=== PATIENT | male | born 1935 | race Caucasian/White ===

== ENCOUNTER → 2016-10-15 | Outpatient (REF) | payer MEDICARE | LOC: M SMT 16:58 | PROVIDERS: ATTEND Specialist | DX: R31.29 Other microscopic hematuria (principal) | CPT/HCPCS: 81001; 81002; 87086; G0463 ==

== ENCOUNTER 2018-06-26 10:34 | Day surgery (SDC) | payer MEDICARE ==
[~2018-06-26 10:34] MED LIST: LIDOCAINE 2% INJ 100 MG/5 ML SDV (FOR ANES.) As Ordered; PROPOFOL 200 MG/20 ML VIAL As Ordered
[2018-06-26] MEDS: NS 1,000 ML IV (10:45)
== END 2018-06-26 12:56 | disposition home or self-care (01) ==
LOC: M OPP 10:34
DX: R10.13 Epigastric pain (principal); K29.70 Gastritis, unspecified, without bleeding; I10 Essential (primary) hypertension; E78.5 Hyperlipidemia, unspecified; K21.9 Gastro-esophageal reflux disease without esophagitis; R12 Heartburn; M19.90 Unspecified osteoarthritis, unspecified site; F32.9 Major depressive disorder, single episode, unspecified; N40.1 Benign prostatic hyperplasia with lower urinary tract symptoms; Z87.891 Personal history of nicotine dependence; Z79.899 Other long term (current) drug therapy; Z80.1 Family history of malignant neoplasm of trachea, bronchus and lung
CPT/HCPCS: 43239

== ENCOUNTER → 2019-11-28 | Outpatient (REF) | payer MEDICARE ==
[~2019-11-28] MED LIST changes: +BENA40TA5 PO; +CHLO125TA PO; -LIDOCAINE 2% INJ 100 MG/5 ML SDV (FOR ANES.) As Ordered; +PRAV40TA2 PO; +PRIL20TA2 PO; +PROP60CA PO; -PROPOFOL 200 MG/20 ML VIAL As Ordered
== END ==
LOC: M LAB REF 09:48
PROVIDERS: ATTEND Dermatology
DX: D22.5 Melanocytic nevi of trunk (principal); D23.4 Other benign neoplasm of skin of scalp and neck

== ENCOUNTER 2020-08-31 05:30 | Observation (INO) | payer MEDICARE ==
[~2020-08-31] VITALS: Ht 177.8 cm; Wt 105.4 kg
[2020-08-31] VITALS (12 sets, daily range): BP systolic 132–174; BP diastolic 64–85
[2020-08-31] MEDS ORDERED: FAMOTIDINE INJ 20MG/2ML VIAL (S0028 PER 1) IVP ONE (05:45)
[2020-08-31] MEDS ORDERED: diphenhydrAMINE 50MG/ML VIAL (J1200) IV ONE (05:45)
[2020-08-31] MEDS ORDERED: dexameTHASONE 20MG/5ML VIAL (J1100 PER 1MG) IV ONE (05:45)
[2020-08-31] MEDS ORDERED: FAMO40TA3 PO (07:06)
[2020-08-31] MEDS ORDERED: CHLO25TA PO (07:14)
[2020-08-31] MEDS ORDERED: NYST10CR TOP (07:29)
[2020-08-31] MEDS ORDERED: OXYMETAZOLINE 0.05% NASAL SPRAY (AFRIN) ONE (07:45)
[2020-08-31] MEDS ORDERED: FAMOTIDINE 20 MG TAB PO PRN (08:30)
[2020-08-31] MEDS ORDERED: ACETAMINOPHEN TAB 650MG DOSE (2X325MG) PO PRN (08:30)
[2020-08-31] MEDS ORDERED: NYSTATIN CREAM 15 GM TOP PRN (08:30)
[2020-08-31] MEDS ORDERED: hydrALAZINE 20MG/ML 1ML VIAL (J0360 PER 20MG) IV PRN (08:45)
--- NOTE | 2020-08-31 08:51 | HPEPDOC ---
General Date of Admission 08/31/20 Date of Service: Aug 31, 2020 Chief Complaint The patient is a 85-year-old male admitted with a reason for visit of Lip/Mouth Swelling. Source: Patient, EMS notes reviewed Exam Limitations: Mild cognitive slowing Timing/Duration: 4-6 hours Severity: Moderate History of Present Illness Patient is 85 years old male with past medical history of hypertension, hyperlipidemia presented to the hospital with with swelling lips and difficulties in swallowing. Patient was transferred from [facility]. Patient stated that around 8 hours ago he started having swelling of his lips and his tongue became enlarged. Patient extremely poor historian Of note patient had 3 episodes of this swelling for past 8 years. Patient chronically on Jose inhibitor for hypertension. In ER patient was found to have swelling enlarged lips with enlarged tongue. Dr. Bueno did laryngoscopy and he did not find swelling, vocal cords or pharynx. Patient received antihistamines, steroids and FFP. Also patient was found to have C4 level within normal limit Home Medications Scheduled Benazepril HCl (Benazepril HCl) 40 Mg Tab, 40 MG PO DAILY, (Reported) Chlorthalidone (Chlorthalidone) 25 Mg Tablet, 25 MG PO DAILY, (Reported) Pravastatin Sodium (Pravastatin Sodium) 40 Mg Tab, 40 MG PO QHS, (Reported) Propranolol HCl (Propranolol HCl ER) 60 Mg Cap, 60 MG PO DAILY, (Reported) Scheduled PRN Famotidine (Famotidine) 40 Mg Tablet, 40 MG PO DAILY PRN for HEARTBURN, (Reported) Nystatin (Nystatin) 15 Gm Cream..g., 1 APPLIC TOP DAILY PRN for RASH, (Reported) APPLY TO GROIN NEEDED FOR FLARE UPS Allergies Coded Allergies: aspirin (Verified Adverse Reaction, Mild, UPSET STOMACH, 08/31/20) Past Medical History Medical History Hypertension, hyperlipidemia Family History I personally reviewed family history and found not pertinent Social History * Smoker: former Smoker Alcohol: Denies Drugs: denies A-FIB/CHADSVASC A-FIB History Current/History of A-Fib/PAF?: No Current PO Anticoag Therapy: No Review of Systems Constitutional: Denies: Chills Eyes: Denies: Pain ENT: Reports: Other Symptoms (swollen lips and tongue) Skin: Denies: Rash Pulmonary: Denies: Dyspnea, Cough Cardiovascular: Denies: Chest Pain Gastrointestinal: Denies: Nausea, Vomiting Genitourinary: Denies: Dysuria Hematologic: Denies: Bruising Endocrine: Denies: Polydipsia Musculoskeletal: Denies: Neck Pain Neurological: Denies: Weakness Psych: Reports: Mood Normal Physical Examination General Exam: Positive: Alert, Cooperative Eye Exam: Positive: PERRLA ENT Exam: Positive: Atraumatic, Tongue Midline (mildly enlarged), Other ENT (swollen lips) Neck Exam: Positive: Supple; Negative: JVD Chest Exam: Positive: Clear to auscultation Heart Exam: Positive: Rate Normal Telemetry: Positive: No significant arrhythmia Abdomen Exam: Positive: Normal bowel sounds Extremity Exam: Negative: Clubbing Skin Exam: Negative: Rash Neuro Exam: Positive: Strength at 5/5 X4 ext Psych Exam: Positive: Mental status NL Vital Signs Vital Signs Date Time Temp Pulse Resp B/P (MAP) Pulse Ox O2 Delivery O2 Flow Rate FiO2 08/31/20 08:15 98.5 73 20 170/84 97 Room Air Laboratory Data Labs 24H Laboratory Tests 2 08/31/20 06:14: Complement C4 24 08/31/20 07:11: Coronavirus (COVID-19)(PCR) NEGATIVE, Influenza Type A (RT-PCR) NEGATIVE, Influenza Type B (RT-PCR) NEGATIVE, Respiratory Syncytial Virus (PCR) NEGATIVE Assessment/Plan Patient is 85 years old male with past medical history of hypertension, hyperlipidemia presented to the hospital with with swelling lips and difficulties in swallowing. Patient was transferred from [facility]. Patient stated that around 8 hours ago he started having swelling of his lips and his tongue became enlarged. Patient extremely poor historian Of note patient had 3 episodes of this swelling for past 8 years. Patient chronically on Jose inhibitor for hypertension. In ER patient was found to have swelling enlarged lips with enlarged tongue. Dr. Bueno did laryngoscopy and he did not find swelling, vocal cords or pharynx. Patient received antihistamines, steroids and FFP. Also patient was found to have C4 level within normal limit Problems (1) Angioedema Status: Acute Problem Text: C4 within normal limit Most likely patient developed angioedema secondary to JOSE inhibitor Patient received steroids, antihistamines and fresh frozen plasma. We continued to observe patient for next 24 hours Laryngoscopy negative for vocal cord swelling (2) Hypertension Problem Text: Hydrolyzing with parameters Norvasc (3) Hyperlipidemia Problem Text: Continue statin Plan / VTE VTE Prophylaxis Ordered?: Yes DENISA AGUILAR DO Aug 31, 2020 08:51
[2020-08-31] MEDS ORDERED: amLODIPine 10 MG TAB PO ONE (09:00)
[2020-08-31] MEDS ORDERED: SLF 3 ML SYR IV PRN (10:00)
[2020-08-31] MEDS: PROPRANOLOL 60 MG LA CAP PO SCH (10:50)
[2020-08-31] MEDS: CHLORTHALIDONE 25 MG TAB PO SCH (10:50)
[2020-08-31] MEDS: ENOXAPARIN 40MG/0.4ML SYRINGE (J1650 PER 10MG) SC SCH ×2 (10:51→10:57)
[2020-08-31] MEDS: SLF 3 ML SYR IV SCH ×2 (14:00→21:21)
[2020-08-31] MEDS ORDERED: PRAVASTATIN 20 MG TAB PO SCH (21:00)
[2020-09-01] VITALS: BP 136/61
[2020-09-01 04:00] VITALS: BP 121/56
[2020-09-01 05:01] LABS: HEMOGLOBIN 11.8 g/dl (13.5-17.5); MEAN CORPUSCULAR HEMOGLOBIN 29.9 pg (27.0-33.0); MEAN CORPUSCULAR HGB CONC 33.7 g/dl (32.0-36.5); MEAN CORPUSCULAR VOLUME 88.8 fl (80.0-96.0); PLATELET COUNT, AUTOMATED 181 10^3/uL (150-450); RED BLOOD COUNT 3.94 10^6/uL (4.30-6.10); WHITE BLOOD COUNT 8.3 10^3/uL (4.0-10.0)
[2020-09-01] MEDS: SLF 3 ML SYR IV SCH (05:18)
[2020-09-01 05:19] LABS: BLOOD UREA NITROGEN 25 MG/DL (7-18); CALCIUM LEVEL 8.7 MG/DL (8.8-10.2); CARBON DIOXIDE LEVEL 29 MEQ/L (21-32); CHLORIDE LEVEL 103 MEQ/L (98-107); CREATININE FOR GFR 1.15 MG/DL (0.70-1.30); GLOMERULAR FILTRATION RATE > 60.0 (>35); GLUCOSE, FASTING 126 MG/DL (70-100); MAGNESIUM LEVEL 2.1 MG/DL (1.8-2.4); SODIUM LEVEL 137 MEQ/L (136-145)
[2020-09-01 08:00] VITALS: BP 151/72
[2020-09-01 08:25] VITALS: BP 151/72
[2020-09-01] MEDS: PROPRANOLOL 60 MG LA CAP PO SCH (08:25)
[2020-09-01] MEDS: CHLORTHALIDONE 25 MG TAB PO SCH (08:29)
[2020-09-01] MEDS: ENOXAPARIN 40MG/0.4ML SYRINGE (J1650 PER 10MG) SC SCH (08:30)
[2020-09-01 12:00] VITALS: BP 155/69
[2020-09-01] MEDS ORDERED: AMLO10TA PO (12:41)
[2020-09-01] MEDS ORDERED: TOPR25TA PO (12:41)
--- NOTE | 2020-09-01 17:00 | DS.PDOC ---
Discharge Summary General Date of Admission Aug 31, 2020 at 05:31 Date of Discharge 09/01/20 Discharge Summary PROCEDURES PERFORMED DURING STAY: [None]. ADMITTING DIAGNOSES: Angioedema Hypertension Hyperlipidemia DISCHARGE DIAGNOSES: Angioedema Hypertension Hyperlipidemia COMPLICATIONS/CHIEF COMPLAINT: Angioedema. HISTORY OF PRESENT ILLNESS:Patient is 85 years old male with past medical history of hypertension, hyperlipidemia presented to the hospital with with swelling lips and difficulties in swallowing. Patient was transferred from [facility]. Patient stated that around 8 hours ago he started having swelling of his lips and his tongue became enlarged. Patient extremely poor historian Of note patient had 3 episodes of this swelling for past 8 years. Patient chronically on Jose inhibitor for hypertension. In ER patient was found to have swelling enlarged lips with enlarged tongue. Dr. Bueno did laryngoscopy and he did not find swelling, vocal cords or pharynx. Patient received antihistamines, steroids and FFP. Also patient was found to have C4 level within normal limit HOSPITAL COURSE: During hospital stay following issues addressed (1) Angioedema C4 within normal limit Most likely patient developed angioedema secondary to JOSE inhibitor Patient received steroids, antihistamines and fresh frozen plasma. Laryngoscopy negative for vocal cord swelling (2) Hypertension Hydrolyzing with parameters Norvasc (3) Hyperlipidemia Continue statin DISCHARGE MEDICATIONS: Please see below. ALLERGIES: Please see below. PHYSICAL EXAMINATION ON DISCHARGE: VITAL SIGNS: Please see below. GENERAL APPEARANCE: NAD HEENT: no scleral icterus, no JVD, EOMI CARDIOVASCULAR: S1S2 LUNGS: CTA ABDOMEN: soft & not tender w palpitation MUSCULOSKELETAL: no cyanosis, no swelling INTEGUMENT: no generalized palor NEUROLOGICAL: cranial nerve function from 2-12 intact intact, follows commands, speech not dysarthric LABORATORY DATA: Please see below. PROGNOSIS: Fair ACTIVITY: [As tolerated]. DIET: Cardiac DISPOSITION: 01 Home, Self-Care. DISCHARGE INSTRUCTIONS: Do not take Jose inhibitors ITEMS TO FOLLOWUP ON ON OUTPATIENT: Follow-up with PCP in 3-5 days DISCHARGE CONDITION: [Stable]. TIME SPENT ON DISCHARGE: Greater than 20 minutes. Vital Signs/I&Os Vital Signs Date Time Temp Pulse Resp B/P (MAP) Pulse Ox O2 Delivery O2 Flow Rate FiO2 09/01/20 12:00 98.0 50 18 155/69 (97) 95 Room Air I&O- Last 24 Hours up to 6 AM 09/01/20 06:00 Intake Total 2419 ml Output Total 1525 ml Balance 894 ml Laboratory Data Labs 24H Laboratory Tests 2 09/01/20 04:41: Nucleated Red Blood Cells % (auto) 0.0, Anion Gap 5L, Glomerular Filtration Rate > 60.0, Calcium Level 8.7L, Magnesium Level 2.1 09/01/20 13:14: Lab Scanned Report Transfusion Record CBC/BMP Laboratory Tests 09/01/20 04:41 Discharge Medications Scheduled Amlodipine Besylate (Norvasc) 10 Mg Tablet, 1 TAB PO DAILY Chlorthalidone (Chlorthalidone) 25 Mg Tablet, 25 MG PO DAILY, (Reported) Metoprolol Succinate (Toprol Xl) 25 Mg Tab.er.24h, 25 MG PO DAILY Pravastatin Sodium (Pravastatin Sodium) 40 Mg Tab, 40 MG PO QHS, (Reported) Scheduled PRN Famotidine (Famotidine) 40 Mg Tablet, 40 MG PO DAILY PRN for HEARTBURN, (Reported) Nystatin (Nystatin) 15 Gm Cream..g., 1 APPLIC TOP DAILY PRN for RASH, (Reported) APPLY TO GROIN NEEDED FOR FLARE UPS Allergies Coded Allergies: aspirin (Verified Adverse Reaction, Mild, UPSET STOMACH, 08/31/20) DENISA AGUILAR DO Sep 01, 2020 17:00
== END 2020-09-01 13:45 | disposition home or self-care (01) ==
LOC: M ED 05:30 → M ED INP 05:31 → ENRESERV 08:30 → M PCU 09:35
PROVIDERS: ADMIT Internal Medicine; ATTEND Internal Medicine
DX: T78.3XXA Angioneurotic edema, initial encounter (principal); I10 Essential (primary) hypertension; E78.49 Other hyperlipidemia; Z79.899 Other long term (current) drug therapy; Z88.8 Allergy status to other drugs, medicaments and biological substances; Z87.891 Personal history of nicotine dependence
CPT/HCPCS: 36415; 36430; 80048; 83735; 85027; 86160; 86850; 86900; 86901; 86927; 87631; 93041; 94760; 96372; 96374; 96375; 99285; G0378; J1100; J1200; J1650; P9017

== ENCOUNTER → 2020-11-28 | Outpatient (REF) ==
[~2020-11-28] MED LIST changes: +AMLO10TA PO; +CHLO25TA PO; +FAMO40TA3 PO; +NYST10CR TOP; +TOPR25TA PO
[2020-11-28 11:57] LABS: COLLAGEN EPINEPHRINE 95 SECONDS (74-162)
== END ==
LOC: M LAB REF 11:13
DX: M43.16 Spondylolisthesis, lumbar region (principal)

== ENCOUNTER → 2021-06-04 | Outpatient (CLI) | payer MEDICARE ==
--- NOTE | 2021-06-04 13:22 | REP ---
INDICATION: DISC DEGENERATION, R/O METS. COMPARISON: None. TECHNIQUE/RADIOTRACER AND DOSE: Following the intravenous administration of 22.0mCi technetium 99 M MDP, patient's whole-body is imaged in multiple projections. FINDINGS: Mild scattered degenerative change is present in the thoracic and lumbar spine. There is mild arthritic uptake in the medial knee joints bilaterally and also in the left foot and right ankle. There is no compelling scintigraphic evidence for osseous metastatic disease in the axial or appendicular skeleton. Renal and bladder activity are seen. IMPRESSION: Areas of mild degenerative change. No compelling scintigraphic evidence of osseous metastases. <Electronically signed by Kenny Aguilar > 06/04/21 [id number]
== END ==
LOC: M RAD 10:06
PROVIDERS: ATTEND Physical Medicine & Rehabilitation
DX: M51.36 Other intervertebral disc degeneration, lumbar region (principal)
CPT/HCPCS: 78306; A9503

== ENCOUNTER → 2021-07-21 | Outpatient (CLI) | payer MEDICARE | LOC: M PAIN 11:00 | PROVIDERS: ATTEND Nurse Practitioner Family | DX: M47.816 Spondylosis without myelopathy or radiculopathy, lumbar region (principal); I10 Essential (primary) hypertension; E78.5 Hyperlipidemia, unspecified; M54.50 Low back pain, unspecified; Z79.899 Other long term (current) drug therapy; Z87.891 Personal history of nicotine dependence; Z88.6 Allergy status to analgesic agent ==

== ENCOUNTER → 2021-12-04 | Outpatient (CLI) | payer MEDICARE ==
[~2021-12-04] MED LIST changes: -BENA40TA5 PO; +BENA40TA84 PO; +ISOVUE-300 61% 50ML VIAL As Ordered ONE; +LIDOCAINE 1% MDV 20ML VIAL As Ordered ONE; +methylPREDNISolone SUSP 40MG/ML 1ML VIAL (DEPO MEDROL) As Ordered ONE
== END ==
LOC: M RADPRO 14:39
PROVIDERS: ATTEND Physician Assistant
DX: M19.011 Primary osteoarthritis, right shoulder (principal)
CPT/HCPCS: 20610; 77002; J1030; Q9967

== ENCOUNTER → 2022-07-16 | Outpatient (CLI) | payer MEDICARE ==
[~2022-07-16] MED LIST changes: -ISOVUE-300 61% 50ML VIAL As Ordered ONE; -LIDOCAINE 1% MDV 20ML VIAL As Ordered ONE; +NYST-13 TOP; -NYST10CR TOP; -methylPREDNISolone SUSP 40MG/ML 1ML VIAL (DEPO MEDROL) As Ordered ONE
== END ==
LOC: M RAD 09:40
PROVIDERS: ATTEND Physical Medicine & Rehabilitation
DX: M51.37 Other intervertebral disc degeneration, lumbosacral region (principal)
CPT/HCPCS: 78306; A9503

== ENCOUNTER → 2022-07-30 | Outpatient (CLI) | payer MEDICARE ==
[2022-07-30 10:06] LABS: PLATELET COUNT, AUTOMATED 189 10^3/uL (150-450)
[2022-07-30 10:24] LABS: COLLAGEN EPINEPHRINE 91 SECONDS (74-162)
[2022-07-30 10:38] LABS: INR 1.01; PARTIAL THROMBOPLASTIN TIME 28.5 SECONDS (24.8-34.2); PROTHROMBIN TIME 13.5 SECONDS (12.5-14.5)
== END ==
LOC: M LAB 09:31
PROVIDERS: ATTEND Physical Medicine & Rehabilitation
DX: M47.896 Other spondylosis, lumbar region (principal)